=== PATIENT | female | born 1940 | race Caucasian/White ===

== ENCOUNTER → 2017-05-27 | Outpatient (CLI) | payer OTHER ==
[~2017-05-27] MED LIST: AMOXICILLIN 50500 M1 PO; HYDROCODON-ACE1 EAC8 PO; IBUPROFEN200 M2 PO; SIMVASTATIN20 MG PO; SYNTHROID25 MCG PO; TRANDATE 200 M200 M1 PO; VALIUM5 MG PO
== END ==
LOC: RAD 09:33
DX: Z12.31 Encounter for screening mammogram for malignant neoplasm of breast (principal)

== ENCOUNTER 2018-06-23 09:31 | Inpatient (IN) | payer OTHER ==
[~2018-06-23] VITALS: Ht 170.2 cm; Wt 82.1 kg
--- NOTE | ~2018-06-23 | HC ---
[facility] [place] [address] CONSULTATION Name: TIM DAMON Room #: 449-I ADM IN ..#: [id number] Admission: 06/23/18 Attend Phys: Reg Casey MD Discharge: Date of : 44 Report #: [id number] THIS REPORT FOR: //name// CC: Sarahi LOPEZ physician/PCP Reg Casey MD REASON FOR CONSULTATION: New onset ascites and omental mass. HISTORY OF PRESENT ILLNESS: The patient is a 78-year-old patient with a history of noninvasive left-sided breast cancer from 2011, status post mastectomy and a left reduction as well as history of uterine cancer about 2009. She has about a 2-week history of nausea, vomiting, heartburn, about a 21-pound weight loss. Here in the hospital, a CAT scan showed possible esophageal wall thickening and some apparent nodular areas of soft tissue scattered throughout the omentum and mesentery concerning for areas of cancer. The appendix appears normal. The liver did show an elongated lobe. The spleen shows a low density. Kidneys do not show any hydronephrosis. Degenerative changes are seen in the bone. The patient did undergo a 6.5 liter paracentesis yesterday. Cytology is pending. Her lab is notable for a BUN of 19, creatinine of 1.3. Transaminases are normal, total bilirubin is 0.4, ALT 11, albumin 2.1. White count 12.6, hemoglobin 10.7, MCV 79.8, platelets 370. UA was nonspecific. The patient did have an upper endoscopy, which found a normal duodenum, prepyloric edema, diffuse mild gastric edema, exudative esophagitis of the distal 6 cm of the esophagus with involved areas containing reflux material. Biopsies were obtained. CURRENT MEDICATIONS: Include pantoprazole 40 daily, atorvastatin 20 daily, levothyroxine 25 mcg daily, labetalol 200 b.i.d., Lovenox 40 at bedtime, lorazepam and hydrocodone and fentanyl p.r.n. PHYSICAL EXAMINATION: GENERAL: The patient appears her stated age, is a very pleasant 78-year-old female. VITAL SIGNS: Height is 5 feet 7 inches, which is 170.2 cm. Weight is 181 pounds or 82.1 kilograms. MOOD: She is alert and pleasant and anxious. NEUROLOGIC: Face is symmetrical. She is thinking and speaking normally. EXTREMITIES: Without clubbing, cyanosis or edema. ABDOMEN: Slightly obese. She reports she is much smaller than she was before. LYMPHATIC: No masses in the supraclavicular, cervical, axillary or inguinal region. ASSESSMENT AND PLAN: 1. Omental masses and ascites. Await cytology. We will also probably need to consider CT chest. We will await results and then discuss options with the [address] [address] CONSULTATION Name: DAMONTIM Rocío Room #: 449-I ADM IN M.R.#: [id number] Admission: 06/23/18 Attend Phys: Reg Casey MD Discharge: Date of : 44 Report #: [id number] patient. 2. 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 3. History of uterine cancer in 2009, possible recurrent but not as likely. 4. Ascites, status post 6.5 liter paracentesis. 5. Esophagitis, now on PPI, had been using Pepto-Bismol at home. Biopsy is pending. 6. Dehydration. Receiving IV fluids. 7. Hypertension per others. 8. Hyperlipidemia per others. 9. Hypothyroid per others 10. Mild anemia and microcytosis, might consider iron studies. We will follow with you. <ELECTRONICALLY SIGNED> By: Trevon Bal MD 06/26/18 0725 0944 1131 Trevon Bal MD /nt
--- NOTE | ~2018-06-23 | PATH ---
[facility] [place] [address] PATHOLOGY RPT PROCEDURE Name: TIM DAMON Room #: 450-P ADM IN M.R.#: [id number] Admission: 06/23/18 Date of : 44 Discharge: Report #: [id number] Path Case #: [id number] Note [facility] Accession Number: [id number] TESTS RESULT FLAG UNITS REF RANGE LAB Clinician Provided Cytology Information No. of containers..01 Other (Miscellaneous) Source: [A] 01 ABDOMINAL FLUID DIAGNOSIS: [A] 02 ABDOMINAL FLUID POSITIVE FOR MALIGNANT CELLS. HIGH GRADE NONSMALL CELL CARCINOMA, MOST CONSISTENT WITH ADENOCARCINOMA, WITH BACKGROUND OF REACTIVE MESOTHELIAL CELLS. SEE COMMENT. COMMENT: PROPERLY CONTROLLED, IMMUNOHISTOCHEMICAL STAINS VALIDATED AND PERFORMED ON THE CELL BLOCK, SHOW THE FOLLOWING RESULTS: CK7- POSITIVE CK20- NEGATIVE CK5/6- NEGATIVE P40- NEGATIVE REVIEWED WITH DR. ANDREI MAX, WHO AGREES WITH THE DIAGNOSIS. DR. KUSHAL CANTOR NOTIFIED OF PRELIMINARY FINDINGS AT APPROXIMATELY 1500 ON 06/25/2018. Signed out by: 02 Javier Weller MD, Pathologist NPI- [id number] Performed by: 01 Fidelina Wood, Finishing Machine Operator Automatic ([facility]) Gross description: 01 17ML, YELLOW, CLEAR /LCS FLAG LEGEND: L-Low Normal,H-High Normal,LL-Alert Low,HH-Alert High <-Panic Low,>-Panic High,A-Abnormal,AA-Critical Abnormal Performed at: [address] [facility] [place] [id number] [facility] [address] [place] [address] Rahat Mattson MD, 02 [facility] [address] [address] [facility] [address], [place] [address] Javier Weller MD, Specimen Comment: A courtesy copy of this report has been sent to Specimen Comment: [phone]. Specimen Comment: Report sent to [address] [address] PATHOLOGY RPT PROCEDURE Name: TIM DAMON Room #: 450-P [facility] IN M.R.#: [id number] Admission: 06/23/18 Date of : 44 Discharge: Report #: [id number] Path Case #: [id number] Specimen Comment: A duplicate report has been generated due to demographic updates. Performed at: 01 [facility] [place] [address] [facility] [address], [place], [place] [id number] MD Rahat Mattson MD Phone: [phone]
--- NOTE | ~2018-06-23 | PATH ---
[facility] [address] [address] PATHOLOGY RPT PROCEDURE Name: ROBERTA DAMON Room #: 222-P ADM IN M.R.#: [id number] Admission: 06/23/18 Date of : 44 Discharge: Report #: [id number] Path Case #: [id number] [facility] Accession Number: [id number] . 01 Material submitted: . PART A: BX - ULCERATED PYLORUS PART B: BX - ANTRUM AND BODY R/O H. PYLORI PART C: BX - ULCERATED DISTAL ESOPHAGUS . 01 Clinical history: . Pre-OP DX: Hematemesis Post-OP DX: Ulcerated pylorus and esophagus . 02 Diagnosis: A. Gastric mucosa, ulcerated pylorus, endoscopic biopsy: - Moderate reactive gastropathy associated with focal ulceration as well as fibrotic lamina propria. - Negative for intestinal metaplasia or atrophy. - Negative for Helicobacter pylori (properly controlled immunohistochemical stain performed). . B. Gastric mucosa, antrum and body rule out H. pylori, endoscopic biopsy: - No diagnostic abnormalities present. - Negative for Helicobacter pylori (properly controlled immunohistochemical stain performed). . C. Tissue designated as "ulceration distal esophagus", endoscopic biopsy: - Fibrinopurulent material consistent with ulceration. - Focal detached fragment of few squamous epithelial cells present with acute inflammation. [facility]/06/25/2018 . 02 Comment: A GMS fungal special stain is performed on block C1 and it shows no definite fungal hyphal elements. There are no viral inclusions identified within the fibrinopurulent material / ulceration sampled. Lack of intact epithelial elements limits the interpretation. (IUV:pit 06/25/2018) . 02 Electronically signed: . Aleksandra Hemphill MD, Pathologist NPI- [id number] . 01 Gross description: . A. Received in formalin labeled "Roberta Damon BX ulcerated pylorus," is a single segment of paul soft tissue measuring 0.5 cm in maximum dimension. The specimen is entirely submitted in cassette [place] [address] PATHOLOGY RPT PROCEDURE Name: ROBERTA DAMON A Room #: 222-P [facility] IN ..#: [id number] Admission: 06/23/18 Date of : 44 Discharge: Report #: [id number] Path Case #: [id number] . B. Received in formalin labeled "Roberta Damon BX antrum and body, rule out H. pylori," are 2 segments of paul soft tissue measuring 1.0 x 0.2 x 0.2 cm in aggregate dimensions and ranging from 0.3 to 0.7 cm in maximum dimension. The specimen is submitted entirely in cassette B1. . C. Received in formalin labeled "Damon, Roberta, BX ulceration distal esophagus," is a single segment of paul soft tissue measuring 0.4 cm in maximum dimension. The specimen is entirely submitted in cassette C1. (TSD; 06/24/2018) TOB/TOB . 02 Pathologist provided ICD-10: K31.9, K25.9, K22.10, K20.9 . 02 CPT . 044722, 676971, 715945, E29897, 390052 Specimen Comment: A courtesy copy of this report has been sent to Specimen Comment: [phone], . Specimen Comment: Report sent to / DR CANTOR Performed at: [address], [place] [id number] MD Rahat Mattson MD Phone: [phone] Performed at: [address] [id number] MD Aleksandra Hemphill MD Phone: [phone]
--- NOTE | ~2018-06-23 | PATH ---
[facility] [place] [address] PATHOLOGY RPT PROCEDURE Name: TIM DAMON Room #: 450-P [facility] IN M.R.#: [id number] Admission: 06/23/18 Date of : 44 Discharge: 06/30/18 Report #: [id number] Path Case #: [id number] Note [facility] Accession Number: [id number] TESTS RESULT FLAG UNITS REF RANGE LAB Clinician Provided Cytology Information No. of containers..01 Other (Miscellaneous) Source: [A] 01 ABDOMINAL FLUID DIAGNOSIS: [A] 02 ABDOMINAL FLUID POSITIVE FOR MALIGNANT CELLS. ADENOCARCINOMA IS PRESENT. THIS INTERPRETATION INCLUDES EVALUATION OF A CELL BLOCK. Comment: The cells are similar to the ones noted in [id number]. Per Dr. Bal's request ER and CO (markers) are ordered. In order to confirm that the cells examined for the markers are adenocarcinoma cells, BerEP4 and calretinin are performed as well. The tumor cells show strong membraous reactivity to BerEP4, are negative (no nuclear reactivity present) for ER and CO. The tumor cells are non-reactive to calretinin. Findings are conveyed to Dr. Bal in the morning of 07/02/18. Signed out by: 02 Aleksandra Hemphill MD, Pathologist NPI- [id number] Performed by: Santiago Victor, Hand Packer ([facility]) Gross description: 01 50ML, YELLOW, CLOUDY /LCS FLAG LEGEND: L-Low Normal,H-High Normal,LL-Alert Low,HH-Alert High <-Panic Low,>-Panic High,A-Abnormal,AA-Critical Abnormal Performed at: 01 [facility] [address] [place] [address] [address] [place] [address] Rahat Mattson MD, [address] [address] Aleksandra Hemphill MD, Specimen Comment: A courtesy copy of this report has been sent to Specimen Comment: [phone]. Specimen Comment: Report sent to Performed at: 01 [facility] [address] [place] [address] PATHOLOGY RPT PROCEDURE Name: TIM DAMON Rocío Room #: 450-P [facility] IN M.R.#: [id number] Admission: 06/23/18 Date of : 44 Discharge: 06/30/18 Report #: [id number] Path Case #: [id number] [facility] [address] [facility] [address], [place], [place] [id number] MD Rahat Mattson MD Phone: [phone]
--- NOTE | ~2018-06-23 | EKG ---
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 : 1940 Requested By: Batsheva Duron Order Number: [id number] MD: Felipe Alicia Measurements Intervals [place] Rate: 79 P: 11 AL: 236 QRS: 2 QRSD: 75 T: 11 QT: 383 QTc: 440 Interpretive Statements Sinus rhythm Prolonged AL interval Low voltage, extremity leads Compared to ECG 05/19/2012 08:53:17 Low QRS voltage now present Electronically Signed On 06-23-2018 17:18:32 MEDICAL PRACTICE ADMINISTRATOR by Felipe Alicia [email or web address] <ELECTRONICALLY SIGNED> By: Felipe Alicia MD 06/23/18 1718 [address] Suzette Alicia MD /PEDRO LUIS
[2018-06-23 09:32] VITALS: BP 174/71
[2018-06-23 10:01] LABS: URINE BLOOD TRACE (Negative); URINE CLARITY CLEAR; URINE COLOR YELLOW; URINE GLUCOSE-RANDOM* NEGATIVE (Negative); URINE KETONES TRACE (Negative); URINE LEUKOCYTES-REFLEX NEGATIVE (Negative); URINE NITRITE-REFLEX NEGATIVE (Negative); URINE PROTEIN (DIPSTICK) TRACE (Negative); URINE SPECIFIC GRAVITY 1.025 (1.005-1.035); URINE UROBILINOGEN 0.2 E.U./dl (0.2-1.0)
[2018-06-23 10:03] LABS: ICTOTEST (BILI CONFIRMATORY) Negative (Negative); URINE BILIRUBIN NEGATIVE (Negative)
[2018-06-23 10:04] LABS: ABSOLUTE NEUTROPHILS 10.6 thou/uL (1.4-8.2); BASOPHILS 0.4 % (0.0-2.0); EOSINOPHILS 0.1 % (0.0-3.0); HEMATOCRIT 33.4 % (37.0-47.0); HEMOGLOBIN 10.7 gm/dL (12.0-15.0); LYMPHOCYTES 8.4 % (24.0-44.0); MCH 25.5 pg (26.0-34.0); MCV 79.8 fL (80.0-100.0); MONOCYTES 6.7 % (1.0-8.0); PLATELET COUNT 370 thou/uL (150-400); POLYS 84.4 % (36.0-66.0); RBC 4.18 mil/uL (4.20-5.00); WBC 12.6 thou/uL (4.0-11.0)
[2018-06-23 10:11] LABS: ANION GAP 4 mmol/L (7-16); BUN 17 mg/dL (7-18); CALCIUM 10.1 mg/dL (8.5-10.1); CHLORIDE 104 mmol/L (98-107); CO2 33 mmol/L (21-32); CREATININE 1.2 mg/dL (0.6-1.0); GLUCOSE 130 mg/dL (74-106); POTASSIUM 3.3 mmol/L (3.5-5.1); SODIUM 141 mmol/L (136-145)
[2018-06-23 10:17] LABS: ALBUMIN 2.1 g/dL (3.4-5.0); DIRECT BILIRUBIN < 0.1 mg/dL (<0.1-0.3); LIPASE 49 U/L (73-393); SGOT 17 U/L (15-37); SGPT 11 U/L (30-65); TOTAL BILIRUBIN 0.4 mg/dL (<0.1-1.0); TOTAL PROTEIN 6.3 g/dL (6.4-8.2)
[2018-06-23 12:06] VITALS: BP 130/78
[2018-06-23 12:12] VITALS: BP 129/52
[2018-06-23] MEDS ORDERED: DITROPAN XL10 MG PO (12:25)
[2018-06-23] MEDS ORDERED: ATIVAN0.5 MG PO (12:25)
[2018-06-23 12:30] VITALS: BP 131/66
[2018-06-23 15:14] VITALS: BP 110/81
[2018-06-23 15:58] LABS: HEMATOCRIT 35.1 % (37.0-47.0); HEMOGLOBIN 11.7 gm/dL (12.0-15.0)
[2018-06-23 19:05] VITALS: BP 110/72
[2018-06-24 03:11] LABS: HEMATOCRIT 30.6 % (37.0-47.0); MCH 25.1 pg (26.0-34.0); MCHC 31.1 g/dL (28.0-37.0); MCV 80.6 fL (80.0-100.0); RBC 3.79 mil/uL (4.20-5.00); WBC 11.3 thou/uL (4.0-11.0)
[2018-06-24 03:21] LABS: HEMOGLOBIN 9.5 gm/dL (12.0-15.0)
[2018-06-24 03:43] LABS: CALCIUM 9.5 mg/dL (8.5-10.1); CREATININE 1.3 mg/dL (0.6-1.0); POTASSIUM 3.7 mmol/L (3.5-5.1)
[2018-06-24 04:00] VITALS: BP 101/57
[2018-06-24 07:34] VITALS: BP 102/62
[2018-06-24 12:56] LABS: COLOR YELLOW; SOURCE ABDOMINAL; TOTAL VOLUME 60 mL
[2018-06-24 12:57] LABS: CLARITY HAZY
[2018-06-24 13:37] LABS: BF NUCLEATED CELLS 864; BF RBC 832
[2018-06-24 13:38] LABS: SOURCE ABDOMINAL
[2018-06-24 14:07] LABS: BF NEUTROPHILS 3
[2018-06-24 14:08] LABS: BF MACROPHAGE 10
[2018-06-24 15:43] LABS: HEMATOCRIT 30.3 % (37.0-47.0); HEMOGLOBIN 9.6 gm/dL (12.0-15.0)
[2018-06-24 16:05] VITALS: BP 78/45
[2018-06-24 19:23] VITALS: BP 105/36
[2018-06-25 03:47] VITALS: BP 100/54
[2018-06-25 08:59] VITALS: BP 103/43
[2018-06-25 15:06] VITALS: BP 140/68
[2018-06-25] MEDS ORDERED: BYSTOLIC20 MG PO (15:21)
[2018-06-25 19:32] VITALS: BP 117/60
[2018-06-26 03:35] VITALS: BP 104/44
[2018-06-26 08:53] LABS: % SATURATION 13 % (20-39); IRON 16 ug/dL (50-170); TIBC 119 ug/dL (250-450)
[2018-06-26 09:08] VITALS: BP 107/58
[2018-06-26 14:07] LABS: BODY FLUID ALBUMIN 2.3 g/dL (()); BODY FLUID AMYLASE 15 U/L (()); BODY FLUID GLUCOSE 106 mg/dL (()); BODY FLUID LDH 207 IU/L (()); BODY FLUID PROTEIN 4.1 g/dL (())
[2018-06-26 15:26] LABS: HEMATOCRIT 28.3 % (37.0-47.0); HEMOGLOBIN 9.2 gm/dL (12.0-15.0); MCHC 32.4 g/dL (28.0-37.0); MCV 80.1 fL (80.0-100.0); RBC 3.53 mil/uL (4.20-5.00); RDW 15.3 % (10.5-14.5); WBC 8.2 thou/uL (4.0-11.0)
[2018-06-26 15:39] LABS: INR 1.1; PROTIME 11.6 Seconds (9.3-11.4)
[2018-06-26 20:10] VITALS: BP 107/67
[2018-06-27 03:31] VITALS: BP 108/63
[2018-06-27 04:54] LABS: MAGNESIUM 2.2 mg/dL (1.8-2.4); PHOSPHORUS 2.6 mg/dL (2.5-4.9)
[2018-06-27 05:22] LABS: FOLIC ACID 17.5 ng/mL (8.6-58.9)
[2018-06-27 07:12] VITALS: BP 107/56
[2018-06-27 18:30] VITALS: BP 131/62
[2018-06-28 03:54] VITALS: BP 109/54
[2018-06-28 08:00] VITALS: BP 119/74
[2018-06-28 09:34] LABS: CALCIUM 7.4 mg/dL (8.5-10.1); CREATININE 0.8 mg/dL (0.6-1.0); POTASSIUM 3.5 mmol/L (3.5-5.1)
[2018-06-28 13:34] LABS: HEMATOCRIT 32.3 % (37.0-47.0); HEMOGLOBIN 10.4 gm/dL (12.0-15.0); MCH 25.8 pg (26.0-34.0); MCHC 32.3 g/dL (28.0-37.0); MCV 79.9 fL (80.0-100.0); RBC 4.05 mil/uL (4.20-5.00); WBC 10.1 thou/uL (4.0-11.0)
[2018-06-28 15:59] VITALS: BP 119/67
[2018-06-28 19:36] VITALS: BP 125/68
[2018-06-29 01:14] LABS: HEMATOCRIT 30.5 % (37.0-47.0); HEMOGLOBIN 9.8 gm/dL (12.0-15.0); MCH 25.7 pg (26.0-34.0); MCV 80.3 fL (80.0-100.0); RBC 3.8 mil/uL (4.20-5.00); RDW 15.6 % (10.5-14.5); WBC 9.5 thou/uL (4.0-11.0)
[2018-06-29 01:30] LABS: CALCIUM 7.1 mg/dL (8.5-10.1); CREATININE 0.8 mg/dL (0.6-1.0); MAGNESIUM 1.8 mg/dL (1.8-2.4); POTASSIUM 3.1 mmol/L (3.5-5.1)
[2018-06-29 04:02] VITALS: BP 130/72
[2018-06-29 07:52] VITALS: BP 145/68
[2018-06-29 14:07] VITALS: BP 122/69
[2018-06-29 19:42] VITALS: BP 108/58
[2018-06-30 05:29] VITALS: BP 128/69
[2018-06-30 07:30] VITALS: BP 120/80
[2018-06-30 07:38] LABS: HEMATOCRIT 33.1 % (37.0-47.0); HEMOGLOBIN 10.6 gm/dL (12.0-15.0); MCH 25.4 pg (26.0-34.0); MCV 79.4 fL (80.0-100.0); RBC 4.17 mil/uL (4.20-5.00); RDW 15.5 % (10.5-14.5); WBC 10.9 thou/uL (4.0-11.0)
[2018-06-30 07:57] LABS: CALCIUM 7.3 mg/dL (8.5-10.1); CREATININE 0.8 mg/dL (0.6-1.0); MAGNESIUM 1.9 mg/dL (1.8-2.4); POTASSIUM 4.2 mmol/L (3.5-5.1)
[2018-06-30] MEDS ORDERED: XARELTO15 MG PO (12:48)
[2018-06-30] MEDS ORDERED: XARELTO20 MG PO (12:48)
[2018-06-30] MEDS ORDERED: PEPCID20 MG PO (12:48)
[2018-06-30 13:07] VITALS: BP 120/80
== END 2018-06-30 16:35 | disposition home or self-care (01) | DRG 377 ==
LOC: ER 09:31 → EROBS 11:18 → 4W 11:18 → SICU 06-26 11:25 → 4W 06-26 14:49
PROVIDERS: Emergency Medicine; Hospitalist; Internal Medicine; Internal Medicine Hematology & Oncology; Nurse Practitioner; Nurse Practitioner Family
PROC: 0DB58ZX Excision of Esophagus, Via Natural or Artificial Opening Endoscopic, Diagnostic (ICD-10-PCS; principal; 2018-06-24)
PROC: 0W9G3ZZ Drainage of Peritoneal Cavity, Percutaneous Approach (ICD-10-PCS; principal; 2018-06-24)
PROC: 0DB68ZX Excision of Stomach, Via Natural or Artificial Opening Endoscopic, Diagnostic (ICD-10-PCS; principal; 2018-06-24)
PROC: 0W9G3ZZ Drainage of Peritoneal Cavity, Percutaneous Approach (ICD-10-PCS; 2018-06-29)
DX: K25.4 Chronic or unspecified gastric ulcer with hemorrhage (principal); I26.99 Other pulmonary embolism without acute cor pulmonale; E43 Unspecified severe protein-calorie malnutrition; R18.8 Other ascites; C78.6 Secondary malignant neoplasm of retroperitoneum and peritoneum; K21.0 Gastro-esophageal reflux disease with esophagitis; E03.9 Hypothyroidism, unspecified; Z96.653 Presence of artificial knee joint, bilateral; E86.0 Dehydration; E78.5 Hyperlipidemia, unspecified; F41.9 Anxiety disorder, unspecified; D50.9 Iron deficiency anemia, unspecified; E78.00 Pure hypercholesterolemia, unspecified; K44.9 Diaphragmatic hernia without obstruction or gangrene; K31.9 Disease of stomach and duodenum, unspecified; I95.9 Hypotension, unspecified; Z90.710 Acquired absence of both cervix and uterus; Z90.49 Acquired absence of other specified parts of digestive tract; Z85.3 Personal history of malignant neoplasm of breast; Z88.6 Allergy status to analgesic agent; Z85.42 Personal history of malignant neoplasm of other parts of uterus; Z90.10 Acquired absence of unspecified breast and nipple; Z79.1 Long term (current) use of non-steroidal anti-inflammatories (NSAID); Z68.28 Body mass index [BMI] 28.0-28.9, adult; Z87.891 Personal history of nicotine dependence
CPT/HCPCS: 10047; 62110; 62900; 70005

== ENCOUNTER 2018-07-05 10:49 | Emergency (ER) | payer OTHER ==
--- NOTE | ~2018-07-05 | EKG ---
[place] [address] [place] [address] ELECTROCARDIOGRAM REPORT Name: TIM DAMON [facility] [id number] Admission: 07/05/18 Attend Phys: Discharge: 07/05/18 Date of : 44 Report #: [id number] THIS REPORT FOR: //name// [facility] [place] ED Test Date: 2018-07-05 Test Time: 11:56:13 Pat Name: TIM DAMON Department: Room: Gender: F Network Specialist: [facility] : 1940 Requested By: Amina Spring Order Number: [id number] MD: Francesco Yates Measurements Intervals [place] Rate: 89 P: -33 UT: 200 QRS: -20 QRSD: 91 T: QT: 379 QTc: 462 Interpretive Statements Sinus rhythm Borderline left axis deviation Low voltage, extremity leads Lead(s) II were not used for morphology analysis Compared to ECG 06/23/2018 10:00:34 Electronically Signed On 07-05-2018 20:47:22 ESCORT VEHICLE DRIVER by Francesco Yates [email or web address] <ELECTRONICALLY SIGNED> By: Francesco Yates MD 07/05/182046 1156 1156 Francesco Yates MD /PEDRO LUIS
[~2018-07-05 10:49] MED LIST changes: +ATIVAN0.5 MG PO; +BYSTOLIC20 MG PO; +DITROPAN XL10 MG PO; +PEPCID20 MG PO; +XARELTO15 MG PO; +XARELTO20 MG PO
[2018-07-05 12:19] LABS: HEMATOCRIT 39.3 % (37.0-47.0); HEMOGLOBIN 11.9 gm/dL (12.0-15.0); MCH 24.8 pg (26.0-34.0); MCHC 30.2 g/dL (28.0-37.0); MCV 82.3 fL (80.0-100.0); RBC 4.77 mil/uL (4.20-5.00); RDW 16.1 % (10.5-14.5); WBC 14.7 thou/uL (4.0-11.0)
[2018-07-05 12:21] LABS: ANION GAP 8 mmol/L (7-16); BUN 11 mg/dL (7-18); CALCIUM 8.4 mg/dL (8.5-10.1); CHLORIDE 105 mmol/L (98-107); CO2 24 mmol/L (21-32); CREATININE 0.9 mg/dL (0.6-1.0); GLUCOSE 113 mg/dL (74-106)
[2018-07-05 12:22] LABS: SODIUM 137 mmol/L (136-145)
[2018-07-05 12:29] LABS: ALBUMIN 1.3 g/dL (3.4-5.0); LIPASE 71 U/L (73-393); SGOT 32 U/L (15-37); SGPT 13 U/L (30-65); TOTAL BILIRUBIN 0.5 mg/dL (<0.1-1.0); TOTAL PROTEIN 5.6 g/dL (6.4-8.2); TROPONIN-I <0.06 ng/mL (<0.06)
[2018-07-05 12:54] LABS: URINE BLOOD TRACE (Negative); URINE CLARITY CLEAR; URINE COLOR YELLOW; URINE GLUCOSE-RANDOM* NEGATIVE (Negative); URINE KETONES NEGATIVE (Negative); URINE LEUKOCYTES-REFLEX NEGATIVE (Negative); URINE NITRITE-REFLEX NEGATIVE (Negative); URINE PROTEIN (DIPSTICK) 1+ (Negative); URINE SPECIFIC GRAVITY 1.025 (1.005-1.035); URINE UROBILINOGEN 0.2 E.U./dl (0.2-1.0)
[2018-07-05 12:56] LABS: ICTOTEST (BILI CONFIRMATORY) Negative (Negative); URINE BILIRUBIN NEGATIVE (Negative)
[2018-07-05 13:38] LABS: INR 1.1; PROTIME 11.4 Seconds (9.3-11.4)
[2018-07-05] MEDS ORDERED: ZOFRAN ODT4 MG PO (14:07)
[2018-07-05 14:45] VITALS: BP 136/80
== END 2018-07-05 15:56 | disposition home or self-care (01) ==
LOC: ER 10:49
PROVIDERS: Student in an Organized Health Care Education/Training Program
DX: R18.8 Other ascites (principal); R11.2 Nausea with vomiting, unspecified; E03.9 Hypothyroidism, unspecified; Z90.89 Acquired absence of other organs; Z96.653 Presence of artificial knee joint, bilateral; Z88.8 Allergy status to other drugs, medicaments and biological substances; Z90.49 Acquired absence of other specified parts of digestive tract; Z90.710 Acquired absence of both cervix and uterus; Z85.3 Personal history of malignant neoplasm of breast; Z85.42 Personal history of malignant neoplasm of other parts of uterus

== ENCOUNTER → 2018-07-06 | Outpatient (CLI) | payer OTHER ==
[~2018-07-06] MED LIST changes: +ZOFRAN ODT4 MG PO
== END | disposition home or self-care (01) ==
LOC: ULTRA 13:18
DX: R18.8 Other ascites (principal); Z79.899 Other long term (current) drug therapy

== ENCOUNTER → 2018-07-16 | Outpatient (CLI) | payer OTHER | END | disposition home or self-care (01) | LOC: ULTRA 09:00 | DX: R18.8 Other ascites (principal); Z88.8 Allergy status to other drugs, medicaments and biological substances; Z79.899 Other long term (current) drug therapy; Z96.653 Presence of artificial knee joint, bilateral; Z90.710 Acquired absence of both cervix and uterus; Z90.49 Acquired absence of other specified parts of digestive tract; Z98.890 Other specified postprocedural states; Z87.891 Personal history of nicotine dependence; Z85.42 Personal history of malignant neoplasm of other parts of uterus ==

== ENCOUNTER → 2018-07-20 | Outpatient (CLI) | payer OTHER ==
[~2018-07-20] VITALS: Ht 167.6 cm; Wt 81.6 kg
[2018-07-20 09:07] VITALS: BP 116/78
--- NOTE | 2018-07-20 11:14 | NUR ---
PT. VOMITED POST PLEURX CATH IN CV/IR HOLDING. BILE COLORED. GIVEN ZOFRAN 4 MG IVP FOR NAUSEA. FAMILY AT BEDSIDE. CONT TO MONITOR. VSS.
--- NOTE | 2018-07-20 11:38 | NUR ---
PT. FEELING BETTER. MORE ALERT. DENIES PAIN/NAUSEA. VSS. SBP 125-135. RAO2 SAT 94%. FAMILY VERY INVOLVED AT BEDSIDE. ASSITED TO DRESS AND PLACE IN WC. SL DC'D. NO REDDNESS. NO EDEMA. HOME PER CAR WITH FAMILY.
== END | disposition home or self-care (01) ==
LOC: SPEC 08:14
DX: R18.8 Other ascites (principal); C25.9 Malignant neoplasm of pancreas, unspecified